=== PATIENT | male | born 1935 | race Caucasian/White ===

== ENCOUNTER 2020-01-10 12:19 | Inpatient (IN) | payer MEDICARE, BC ==
[~2020-01-10] VITALS: Ht 167.6 cm; Wt 62.1 kg
[2020-01-10] MEDS ORDERED: IV NS 0.9% 1,000 ML BAG IV ONE (12:30)
--- NOTE | 2020-01-10 12:30 | NUR ---
[place] C/O UNWITNESSED FALL FROM CHAIR FACILITY REPORTS THE PATIENT FELL ASLEEP AND FELL OFF A CHAIR, LANDING ON THE GROUND. PATIENT A/OX3, BREATHING EVEN AND UNLABORED, NO SOB NOTED. PATIENT PRESENTED WITH ABRASION WITH DRY BLOOD ON RIGHT SIDE OF THE HEAD.
[2020-01-10 12:47] LABS: BASOPHILS % (AUTO) 0.1 % (0.0-2.0); HEMATOCRIT 37 % (39-51); HEMOGLOBIN 11.6 g/dL (13.5-17.5); LYMPHOCYTES # (AUTO) 0.5 /CMM (0.8-4.8); LYMPHOCYTES % (AUTO) 4.8 % (20.0-44.0); MEAN CORPUSCULAR HGB CONC 32 g/dl (31.0-36.0); MEAN CORPUSCULAR VOLUME 82 fL (80-96); MONOCYTES # (AUTO) 0.8 /CMM (0.1-1.30); MONOCYTES % (AUTO) 7.4 % (2.0-12.0); NEUTROPHILS # (AUTO) 9.2 /CMM (1.8-8.9); NEUTROPHILS % (AUTO) 87.7 % (43.0-81.0); PLATELET COUNT (AUTO) 177 /CMM (150-450); RED BLOOD CELL COUNT(AUTO) 4.49 MIL/uL (4.5-6.0); WHITE BLOOD COUNT (AUTO) 10.5 K/uL (4.3-11.0)
--- NOTE | 2020-01-10 12:52 | NUR ---
[facility] [phone]
[2020-01-10 13:02] LABS: ALANINE AMINOTRANSFERASE 19 U/L (12-78); ALBUMIN 2.9 g/dL (3.4-5.0); ALKALINE PHOSPHATASE 99 U/L (46-116); ASPARTATE AMINOTRANSFERASE 27 U/L (15-37); BILIRUBIN,DIRECT 0.3 mg/dL (0.0-0.2); CALCIUM, SERUM 9.7 mg/dL (8.5-10.1); CARBON DIOXIDE 29 mmol/L (21-32); CHLORIDE 103 mmol/L (98-107); CREATININE 1.6 mg/dL (0.6-1.3); GLUCOSE 113 mg/dL (74-106); POTASSIUM 3.9 mmol/L (3.5-5.1); TOTAL PROTEIN, SERUM 7.6 g/dL (6.4-8.2); UREA NITROGEN, BLOOD 34 mg/dL (7-18)
[2020-01-10 13:05] LABS: SODIUM SERUM 139 mmol/L (136-145)
--- NOTE | 2020-01-10 13:20 | NUR ---
CARDIOLOGY PAGED DR. BURKETT
[2020-01-10 13:31] LABS: BILIRUBIN,TOTAL 0.9 mg/dL (0.2-1.0)
[2020-01-10] MEDS ORDERED: ASPIRIN 325 MG TABLET PO ONE (14:00)
[2020-01-10] MEDS ORDERED: ASPI-1169 PO (14:02)
[2020-01-10] MEDS ORDERED: SULF1TAB48 PO (14:02)
[2020-01-10] MEDS ORDERED: ATOR40TA PO (14:02)
[2020-01-10] MEDS ORDERED: DONE10TA44 PO (14:02)
[2020-01-10] MEDS ORDERED: FURO-145 PO (14:02)
[2020-01-10] MEDS ORDERED: LACT-239 PO (14:02)
[2020-01-10] MEDS ORDERED: CYAN500T66 PO (14:02)
[2020-01-10] MEDS ORDERED: MEMA10TA PO (14:02)
[2020-01-10] MEDS ORDERED: POTA10TA10 PO (14:02)
[2020-01-10] MEDS ORDERED: ASPIRIN 325 MG TABLET ONE (14:05)
--- NOTE | 2020-01-10 14:52 | NUR ---
COVID ANTIGEN AND PCR DONE AND SENT TO LAB
[2020-01-10] MEDS ORDERED: IV 1/2NS 1000 ML 1,000 ML IV PRN (15:00)
[2020-01-10] MEDS ORDERED: MAG HYDROX/AL HYDROX/SIMETH 30 ML UDC PO PRN (15:00)
[2020-01-10] MEDS ORDERED: MAGNESIUM HYDROXIDE 30 ML UDC PO PRN (15:00)
[2020-01-10] MEDS ORDERED: Z GUARD REMEDY 2 OZ OINT TP PRN (15:00)
[2020-01-10] MEDS ORDERED: ACETAMINOPHEN 325 MG TABLET PO PRN (15:00)
[2020-01-10] MEDS ORDERED: HYDROCODONE/APAP 5/325MG TABLET PO PRN (15:00)
[2020-01-10] MEDS ORDERED: ONDANSETRON HCL/PF 4 MG/2 ML VIAL IVP PRN (15:00)
--- NOTE | 2020-01-10 16:04 | NUR ---
PATIENT RESTING, NO DISTRESS NOTED.
--- NOTE | 2020-01-10 16:10 | NUR ---
pt assigned to
--- NOTE | 2020-01-10 16:22 | NUR ---
REPORT GIVEN TO SHIVANI DANG FOR ARNULFO.
--- NOTE | 2020-01-10 17:27 | NUR ---
PATIENT A/OX4, BREATHING EVEN AND UNLABORED, NO SOB NOTED, PATIENT TRANSFERRED TO ROOM 204 VIA ACLS PROTOCOL.
--- NOTE | 2020-01-10 18:00 | NUR ---
SLOTS MANAGER NOTES ADMITTED 84 YEAR OLD MALE TO UNIT AT 1730. ORIENTED PATIENT TO ROOM, UNIT AND CALL LIGHT. UPON ARRIVAL TO UNIT NOTED PATIENT WITH TEMP OF 102.4. DR. POTTS MADE AWARE, TYLENOL GIVEN WITH COOLING MEASURES PROVIDED. ALERT AND ORIENTED X2. NO SOB/COUGH. DENIES ANY C/O PAIN NOR DISCOMFORT AT THIS TIME. ON TELE MONITORING SR: 89. LEFT FA # 198 AND RIGHT HAND # 20 INTACT AND PATENT INFUSING NS @ 125ML/HR EVELYN WELL. ATE DINNER WITH GOOD APPETITE WITHOUT PROBLEM IN SWALLOWING. BED IN LOWEST POSITION, LOCKED. BED ALARM ON. CALL LIGHT WITHIN REACH. FREQUENT VISUAL CHECK DONE. IN NO APPARENT DISTRESS.
[2020-01-10] MEDS: IV NS 0.9% 1,000 ML IV PRN (18:02)
[2020-01-10] MEDS: ENOXAPARIN SODIUM 30 MG/0.3 ML DISP.SYRIN SQ SCH (18:09)
[2020-01-10 19:10] LABS: MAGNESIUM 2.4 mg/dL (1.8-2.4); PHOSPHORUS 3.7 mg/dL (2.5-4.9)
[2020-01-10 19:26] LABS: THYROID STIMULATING HORMONE 0.395 uIU/mL (0.358-3.74)
--- NOTE | 2020-01-10 19:50 | NUR ---
CLOTH FEEDER NOTES NOTIFIED SERGIO PRITCHETT REGARDING PATIENT TROPONIN LEVEL INCREASED FROM 1.618 TO 1.771 ALSO INFORMED HIM THAT LOVENOX WAS GIVEN AFTER THE TROPONIN BLOOD DRAW, NO NEW ORDERS RECEIVED. WILL CONTINUE TO MONITOR.
--- NOTE | 2020-01-10 19:50 | NUR ---
EXECUTIVE DIRECTOR GLOBAL BRAND MARKETING OPENING NOTES RECEIVED PATIENT IN BED ALERT AND ORIENTED X 2-3. VERBALLY RESPONSIVE AND ABLE TO FOLLOW DIRECTIONS. BREATHING REGULAR AND UNLABORED ON ROOM AIR. RIGHT HAND G20 AND LEFT FOREARM G18 IV LINES INTACT AND PATENT, FLUSHING WELL WITH NO BLEEDING OR S/S OF INFILTRATION NOTED. ON CARDIAC MONITORING WITH NSR WITH BBB AT 85bpm. DENIES SUICIDAL IDEATION OR PAIN/DISCOMFORT AT THIS TIME. BED LOW AND LOCKED ON SEMI FOWLERS POSITION. CALL LIGHT IN REACH. WILL CONTINUE TO MONITOR.
[2020-01-10 20:00] VITALS: BP 116/60
[2020-01-11] VITALS (7 sets, daily range): BP systolic 107–125; BP diastolic 54–63
[2020-01-11] MEDS: IV NS 0.9% 1,000 ML IV PRN ×3 (01:52→22:46)
--- NOTE | 2020-01-11 06:00 | NUR ---
ADDING MACHINE OPERATOR NOTES ORTHOSTATIC BP DONE FOR LYING AND SITTING, PATIENT UNABLE TO STAND. LYING 114/58 HR 69 SITTING 125/62 HR 79
--- NOTE | 2020-01-11 06:55 | NUR ---
CELLULAR BIOLOGIST CLOSING NOTES PATIENT IN BED ALERT AND ORIENTED X 2-3. AFEBRILE WITH NO S/S OF DISTRESS OBSERVED. RIGHT HAND G20 AND LEFT FOREARM G18 IV LINES PATENT AND FLUSHING WELL. MAINTAINED ON CARDIAC MONITORING WITH NSR WITH BBB AT 78bpm. NO COMPLAINTS OF PAIN/DISCOMFORT REPORTED AT THIS TIME. BED LOW AND LOCKED ON SEMI FOWLERS POSITION. CALL LIGHT IN REACH. WILL ENDORSE TO MORNING SHIFT FOR ARNULFO.
[2020-01-11 06:58] LABS: BASOPHILS % (AUTO) 0.2 % (0.0-2.0); EOSINOPHILS % (AUTO) 0.2 % (0.0-6.0); HEMATOCRIT 33 % (39-51); HEMOGLOBIN 10.5 g/dL (13.5-17.5); LYMPHOCYTES # (AUTO) 0.3 /CMM (0.8-4.8); LYMPHOCYTES % (AUTO) 4.5 % (20.0-44.0); MEAN CORPUSCULAR HGB CONC 32 g/dl (31.0-36.0); MEAN CORPUSCULAR VOLUME 81 fL (80-96); MONOCYTES # (AUTO) 0.5 /CMM (0.1-1.30); MONOCYTES % (AUTO) 7.4 % (2.0-12.0); NEUTROPHILS # (AUTO) 5.8 /CMM (1.8-8.9); NEUTROPHILS % (AUTO) 87.7 % (43.0-81.0); PLATELET COUNT (AUTO) 244 /CMM (150-450); RED BLOOD CELL COUNT(AUTO) 4.06 MIL/uL (4.5-6.0); WHITE BLOOD COUNT (AUTO) 6.6 K/uL (4.3-11.0)
[2020-01-11 07:10] LABS: ALBUMIN 2.5 g/dL (3.4-5.0); BILIRUBIN,TOTAL 0.5 mg/dL (0.2-1.0); CALCIUM, SERUM 8.7 mg/dL (8.5-10.1); CREATININE 1.3 mg/dL (0.6-1.3); MAGNESIUM 2.4 mg/dL (1.8-2.4); PHOSPHORUS 2.8 mg/dL (2.5-4.9); TOTAL PROTEIN, SERUM 6.7 g/dL (6.4-8.2)
--- NOTE | 2020-01-11 08:00 | NUR ---
SEWING MACHINE OPERATOR OPENING NOTES RECEIVED PATIENT IN BED ALERT AND ORIENTED X 2-3. VERBALLY RESPONSIVE AND ABLE TO FOLLOW DIRECTIONS. BREATHING REGULAR AND UNLABORED ON ROOM AIR. RIGHT HAND G20 AND LEFT FOREARM G18 IV LINES INTACT AND PATENT, FLUSHING WELL WITH NO BLEEDING OR S/S OF INFILTRATION NOTED. WITH IVF NS AT 125 ML/HR INFUSING WELL.ON CARDIAC MONITORING WITH NSR HR:86. DENIES SUICIDAL IDEATION OR PAIN/DISCOMFORT AT THIS TIME. PT IS TOO WEAK AND FED DURING BREAKFAST BUT PT DRINKS ORANGE JUICE OFTEN. OFFERED INCREASE FLUIDS.BED LOW AND LOCKED ON SEMI FOWLERS POSITION. CALL LIGHT IN REACH. WILL CONTINUE TO MONITOR.
[2020-01-11] MEDS: MEMANTINE HCL 5 MG TABLET PO SCH (08:28)
[2020-01-11] MEDS: ASPIRIN 81 MG TAB.CHEW PO SCH (08:28)
[2020-01-11] MEDS: ATORVASTATIN 40 MG TABLET PO SCH (08:28)
[2020-01-11] MEDS: DONEPEZIL 5 MG TABLET PO SCH (08:28)
--- NOTE | 2020-01-11 10:36 | NUR ---
FLU/PNA VACCINE STATUS CALLED PT'S PMD, [facility] AND SPOKE TO JENNIFER,LITHOPRESS OPERATOR WHO STATED THAT SHE WILL CALL US BACK FOR PT'S RECORD OF PT'S FLU/PNA VACCINE.
[2020-01-11] MEDS: ENSURE ENLIVE CHOC 237 ML CAN PO SCH ×2 (12:56→16:54)
--- NOTE | 2020-01-11 14:00 | NUR ---
CALLED DR RICO RHODES(PT'S PMD) AND SPOKE TO JENNIFER REGARDING PT'S FLU/VACCINE SCHEDULE AND JENNIFER STATED SHE WILL CALL BACK FOR THE RESULTS.
--- NOTE | 2020-01-11 15:04 | NUR ---
JENNIFER OF DR GÓME[facility] (PT'S PMD)CALLED AND STATED THAT THEY DIDN'T GIVE ANY FLU/PNA AND THERE IS NO RECORD BECAUSE THE PT NEVER RETURN TO THEIR OFFICE AND THE LAST VISIT WAS APR 2019. [facility] DOESN'T HAVE A RECORD EITHER BECAUSE THEY NEVER GIVE FLU/PNA VACCINE SHOT IN THE CORRECTION EXCEPT FROM THE PT'S PMD.
[2020-01-11 15:14] LABS: *SPE A/G RATIO 0.8 (0.7-1.7); *SPE ALBUMIN 2.8 g/dL (2.9-4.4); *SPE ALPHA-1-GLOBULIN 0.6 g/dL (0.0-0.4); *SPE BETA GLOBULIN 0.9 g/dL (0.7-1.3); *SPE GLOBULIN, TOTAL 3.5 g/dL (2.2-3.9); *SPE M-SPIKE Not Observed g/dL (Not Observed); *SPEGAMMA GLOBULIN 1.1 g/dL (0.4-1.8)
--- NOTE | 2020-01-11 15:26 | NUR ---
CALLED SULTANAPT'S SON WHO STATED THAT HE IS GIVING CONSENT FOR FLU AND PNA VACCINE TO BE ADMINISTERED TO HIS DAD.
[2020-01-11] MEDS: ENOXAPARIN SODIUM 30 MG/0.3 ML DISP.SYRIN SQ SCH (16:55)
--- NOTE | 2020-01-11 17:50 | NUR ---
NOTIFIED PT/PT'S SON,SULTANA REGARDING THE TRANSFER OF THE PT TO [facility] DUE TO COVID NEGATIVE PCR RESULT. TRANSFERRED PT AND MEDS TO [facility] ROOM 304-1 AND GAVE REPORT TO LAURENCE CALHOUN FOR CONTINUITY OF CARE.
--- NOTE | 2020-01-11 17:55 | NUR ---
UNDERWRITING ANALYST NOTES RECEIVED PT FROM MS2 LAURENCE JEFFRIES VIA BED, PT IS AWAKE AND ALERT, NO SIGN OF PAIN, NOT IN DISTRESS, ROOM SET UP ORIENTATION PROVIDED TO PT, CALL LIGHT WITHIN REACH, KEPT WARM AND COMFORTABLE IN BED.
--- NOTE | 2020-01-11 18:42 | NUR ---
MEDICAL RECORDS LIBRARY PROFESSOR NOTES PT IN BED, AWAKE, ALERT AND VERBALLY RESPONSIVE, DENIES PAIN, BREATHING PATTERN NORMAL, IV FLUIDS INFUSING WELL, SUPRAPUBIC CATH IN PLACE AND DRAINING WELL, ASSISTED PT WITH DINNER, TOLERATING CURRENT DIET WELL, KEPT WARM AND COMFORTABLE IN BED.
--- NOTE | 2020-01-11 19:30 | NUR ---
TELE/RN OPENING NOTES: RECEIVED PATIENT A/OX2. VERBALLY RESPONSIVE AND ABLE TO MAKE NEEDS KNOWN. NO SOB NOTED. BREATHING EVEN AND UNLABORED. DENIES PAIN AT THIS TIME. ON TELE MONITORING WITH READING OF SR HR OF 85. IV ON THE LFA #18G AND R HAND #20G WITH IVF NS RUNNING AT 125MLS/HR. SAFETY MEASURES IN PLACE. BED IN LOW, LOCKED POSITION WITH SR X2. CALL LIGHT WITHIN REACH. WILL CONTINUE TO MONITOR ACCORDINGLY.
[2020-01-12] VITALS: BP_SYST 123; BP_SYST 126; BP_DIAS 69
--- NOTE | 2020-01-12 03:51 | NUR ---
TELE/RN NOTES: PT. TELE READING IS SR 76 WITH FREQUENT PVCS AFTER MIDNIGHT. NOTIFIED CHEMICAL PUMPER SERGIO PRITCHETT.
[2020-01-12 04:00] VITALS: BP_SYST 121; BP_SYST 128; BP_DIAS 66; BP_DIAS 69
--- NOTE | 2020-01-12 04:00 | NUR ---
TELE/RN NOTES: ORTHOSTATIC BP RECORDED AND CHARTED ORDERED Q4H. PT REMAINS STABLE. VSS AND WNL. WILL CONTINUE MONITORING.
--- NOTE | 2020-01-12 04:36 | NUR ---
TELE/RN NOTES: PER KALE PRITCHETT NP: "MAKE SURE HE HAS LABS TODAY BMP AND MAGNESIUM". ORDERS NOTED. WILL CONTINUE TO MONITOR ACCORDINGLY.
--- NOTE | 2020-01-12 06:45 | NUR ---
TELE/RN CLOSING NOTES: PATIENT REMAINS A/OX2. VERBALLY RESPONSIVE AND ABLE TO MAKE NEEDS KNOWN. NO SOB NOTED. BREATHING EVEN AND UNLABORED. DENIES PAIN AT THIS TIME. ON TELE MONITORING WITH READING OF SR HR OF 61. IV ON THE LFA #18G AND R HAND #20G WITH IVF NS RUNNING AT 125MLS/HR. ALL DUE MEDS GIVEN ORDERED. ALL NURSING NEEDS MET AND RENDERED. REPOSITIONED Q2HRS. SAFETY MEASURES KEPT IN PLACE. BED IN LOW, LOCKED POSITION WITH SR X2. CALL LIGHT WITHIN REACH. WILL ENDORSE TO DAY SHIFT FOR ARNULFO.
[2020-01-12] MEDS: IV NS 0.9% 1,000 ML IV PRN (06:48)
[2020-01-12 07:06] LABS: MAGNESIUM 2.3 mg/dL (1.8-2.4); POTASSIUM 3.9 mmol/L (3.5-5.1)
--- NOTE | 2020-01-12 07:20 | NUR ---
RECORDS MANAGEMENT ASSISTANT NOTES PATIENT IN BED ALERT ORIENTED X 2. NO ACUTE DISTRESS NOTED. BREATHING UNLABORED. NO SOB NOTED. IV ACCESS PATENT AND INTACT, NO REDNESS, NO SWELLING NOTED. SUPRA PUBIC CATHETER INTACT DRAINING CLEAR YELLOW URINE. SAFETY MEASURES IN PLACE. CALL LIGHT WITHIN REACH. WILL CONTINUE TO MONITOR ACCORDINGLY.
[2020-01-12 08:00] VITALS: BP 99/46
[2020-01-12] MEDS: ENSURE ENLIVE CHOC 237 ML CAN PO SCH ×3 (08:49→17:02)
[2020-01-12] MEDS ORDERED: CARVEDILOL 3.125 MG TABLET PO SCH (09:00)
[2020-01-12] MEDS: DONEPEZIL 5 MG TABLET PO SCH (09:01)
[2020-01-12] MEDS: ATORVASTATIN 40 MG TABLET PO SCH (09:01)
[2020-01-12] MEDS: ASPIRIN 81 MG TAB.CHEW PO SCH (09:01)
[2020-01-12] MEDS: MEMANTINE HCL 5 MG TABLET PO SCH (09:02)
[2020-01-12] MEDS ORDERED: CARV3.122 PO (10:26)
--- NOTE | 2020-01-12 10:46 | NUR ---
WOUND CARE CONSULT: PT PRESENTS WITH RT HEEL WOUND, PRESENT ON ADMISSION. NO DRAINAGE NOTED AT THIS TIME. RECOMMEND DPM CONSULT. DR RICE NOTIFIED OF CONSULT REQUEST. PT HAS SUPRAPUBIC CATH. WILL SEE PRN. NAVARRO IN AGREEMENT WITH PLAN OF CARE. RECOMMENDATIONS MADE FOR SKIN PROTECTION AND WOUND CARE TIL SEEN BY DPM. DISCUSSED WITH NURSING STAFF. Addendum: 01/12/20 at 1048 by ADRIANA MI WNDNU Amended: Links added.
[2020-01-12 16:00] VITALS: BP 103/56
[2020-01-12] MEDS: ENOXAPARIN SODIUM 30 MG/0.3 ML DISP.SYRIN SQ SCH (17:05)
--- NOTE | 2020-01-12 19:00 | NUR ---
MERCHANDISE SUPPORT ASSOCIATE NOTES PATIENT IN BED ALERT ORIENTED X 2. NO ACUTE DISTRESS NOTED. BREATHING UNLABORED. NO SOB NOTED. IV ACCESS PATENT AND INTACT, NO REDNESS, NO SWELLING NOTED. NEEDS ATTENDED AND ANTICIPATED. KEPT CLEAN DRY AND COMFORTABLE. SAFETY MEASURES IN PLACE. CALL LIGHT WITHIN REACH. PATIENT FOR DISCHARGE, REPORT GIVEN TO ATILIO AND CLARIFIED PNEUMONIA AND FLU VACCINE, PER ATILIO PATIENT UP TO DATE AND GIVEN PRIOR TO HOSPITALIZATION. WILL ENDORSE TO NIGHT NURSE FOR CONTINUITY OF CARE AND DISCHARGE.
--- NOTE | 2020-01-12 19:40 | NUR ---
TELE/RN CLOSING NOTES PATIENT BEING DISCHARGED VIA AMBULANCE [facility] WITH TWO FREIGHT CAR LOADER. PATIENT IN BED ALERT ORIENTED X 2. NO ACUTE DISTRESS NOTED. BREATHING EVEN AND UNLABORED. NO SOB NOTED. IV ACCESS REMOVED NO ACTIVE BLEEDING NOTED. SUPRA PUBIC CATHETER INTACT DRAINING CLEAR YELLOW URINE. ALL PATIENTS BELONGINGS TAKEN WITH PATIENT. VITAL SIGNS ARE WITHIN NORMAL LIMITS. PATIENT TRANSFERRED TO [facility].
[2020-01-13] MEDS ORDERED: CADEXOMER IODINE 40 GM TUBE TP SCH (09:00)
== END 2020-01-12 19:35 | DRG 280 ==
LOC: ER 12:25 → TELE2 16:54 → TELE 01-11 17:56
PROVIDERS: ADMIT Internal Medicine; ATTEND Internal Medicine
DX: I21.4 Non-ST elevation (NSTEMI) myocardial infarction (principal); N17.0 Acute kidney failure with tubular necrosis; E43 Unspecified severe protein-calorie malnutrition; G93.40 Encephalopathy, unspecified; L97.419 Non-pressure chronic ulcer of right heel and midfoot with unspecified severity; L03.90 Cellulitis, unspecified; G30.9 Alzheimer's disease, unspecified; F02.80 Dementia in other diseases classified elsewhere, unspecified severity, without behavioral disturbance, psychotic disturbance, mood disturbance, and anxiety; Z87.440 Personal history of urinary (tract) infections; Z79.82 Long term (current) use of aspirin; Z79.899 Other long term (current) drug therapy; D63.8 Anemia in other chronic diseases classified elsewhere; R55 Syncope and collapse; I67.2 Cerebral atherosclerosis; W18.30XA Fall on same level, unspecified, initial encounter; Y92.009 Unspecified place in unspecified non-institutional (private) residence as the place of occurrence of the external cause; I35.0 Nonrheumatic aortic (valve) stenosis
CPT/HCPCS: 36415; 70450-TC; 71045-TC; 72125-TC; 73630-TC; 80048-TC; 80053-TC; 80061-TC; 80076-TC; 82728-TC; 82962-TC; 83540-TC; 83735-TC; 84100-TC; 84155; 84165; 84439-TC; 84443-TC; 84484-TC; 85025-TC; 85730-TC; 87070-TC; 87081-TC; 87186-TC; 92526; 92611-TC; 93307-TC; 97116-TC; 97530-TC; A6253; C9803; G0378; J1650; J3490; J7030; U0003

== ENCOUNTER 2020-05-11 01:05 | Emergency (ER) | payer MEDICARE, BC ==
[~2020-05-11] VITALS: Ht 167.6 cm; Wt 62.1 kg
[~2020-05-11 01:05] MED LIST: ASPI-1169 PO; ATOR40TA PO; CARV3.122 PO; CYAN500T72 PO; DONE10TA44 PO; LACT-239 PO; MEMA10TA PO; POTA10TA10 PO
[2020-05-11] MEDS ORDERED: LIDOCAINE 2% JEL UROJET 10 ML MM ONE (01:21)
--- NOTE | 2020-05-11 01:38 | NUR ---
urine collected and sent to the lab.
[2020-05-11 02:07] LABS: BILIRUBIN,URINE Negative (NEGATIVE); COLOR,URINE YELLOW (YELLOW); LEUKOCYTE ESTERASE ,URINE Large (NEGATIVE); NITRITE, URINE Negative (NEGATIVE); PH,URINE 6.5 (5.0-8.0); PROTEIN,URINE 100 mg/dl (NEGATIVE); UGLUCOSE Negative (NEGATIVE)
[2020-05-11] MEDS ORDERED: CIPR500T5 PO (02:20)
--- NOTE | 2020-05-11 02:26 | NUR ---
REPORT GIVEN MARIANA STAFF AT [facility] FOR [facility].
[2020-05-11 02:27] LABS: BACTERIA,URINE Many /HPF (None Seen); RBC,URINE 81-100 /HPF (0-2); SQUAMOUS EPITHELIAL CELL,UR Few /HPF (None Seen); WBC,URINE 51-80 /HPF (0-3)
[2020-05-11 02:28] LABS: MUCUS,URINE Few /LPF (None Seen)
--- NOTE | 2020-05-11 02:28 | NUR ---
spoke to renée from [facility], [facility] [phone].
[2020-05-11] MEDS ORDERED: CIPROFLOXACIN HCL 500 MG TABLET PO ONE (02:30)
--- NOTE | 2020-05-11 02:34 | NUR ---
CALLED [facility], ETA IS [phone].
[2020-05-11] MEDS ORDERED: CIPROFLOXACIN HCL 500 MG TABLET ONE (02:49)
[2020-05-11 03:20] VITALS: BP 119/69
--- NOTE | 2020-05-11 03:20 | NUR ---
REPORT GIVEN REPORT TO TRANSPORT TEAM FOR ARNULFO. AND TRANSFERRING RESPONSIBILITES.
== END 2020-05-11 03:21 | disposition home or self-care (01) ==
LOC: ER 01:07
DX: T83.021A Displacement of indwelling urethral catheter, initial encounter (principal); N39.0 Urinary tract infection, site not specified; F03.90 Unspecified dementia, unspecified severity, without behavioral disturbance, psychotic disturbance, mood disturbance, and anxiety; E78.5 Hyperlipidemia, unspecified; Z79.899 Other long term (current) drug therapy; Z79.82 Long term (current) use of aspirin
CPT/HCPCS: 51705; 81001; 87086; 99284; J3490